=== PATIENT | male | born 1940 | race Caucasian/White ===

== ENCOUNTER 2017-07-19 08:23 | Emergency (ER) | payer MEDICARE, OTHER ==
[2017-07-19 08:23] VITALS: BMI 21.6
[2017-07-19 08:49] VITALS: TEMP 97.6
--- NOTE | 2017-07-19 09:38 | C.PDOC ---
History Of Present Illness 77 yo male w/PMHx of CVA w/Right side weakness, dysarthria 06/27/17, HTN, hematuria, " pelvic mass" s/p cystoscopy/prostate bleeding (Zach Leal), indwelling Maldonado cath, s/p transfusion PRBC 7 Units, transfer from [facility] for evaluation, possible Maldonado cath removal. Pt reports, has cath for more than week. Otehrwise, ptd eneis any new active complaints. NOted Maldonado cath with tea-color urine drainage. Time Seen by Provider: 07/19/17 08:46 Chief Complaint (Nursing): Male Genitourinary History Per: Patient, Family Past Medical History Reviewed: Historical Data, Nursing Documentation, Vital Signs Vital Signs: Last Vital Signs Temp 97.6 F 07/19/17 08:38 Pulse 88 07/19/17 10:58 Resp 17 07/19/17 10:58 BP 133/86 07/19/17 10:58 Pulse Ox 98 07/19/17 10:58 - Medical History PMH: Anemia, CVA, HTN Denies: Anxiety, HIV, Chronic Kidney Disease Family History: States: No Known Family Hx - Social History Hx Tobacco Use: No Hx Alcohol Use: Yes (no alcohol since 12 years ago.) Hx Substance Use: No - Immunization History Hx Tetanus Toxoid Vaccination: No Hx Influenza Vaccination: Yes Hx Pneumococcal Vaccination: No Review Of Systems Except As Marked, All Systems Reviewed And Found Negative. Constitutional: Negative for: Fever, Chills ENT: Negative for: Throat Pain Cardiovascular: Negative for: Chest Pain, Palpitations Respiratory: Negative for: Cough, Shortness of Breath, Wheezing Gastrointestinal: Negative for: Nausea, Vomiting, Abdominal Pain Genitourinary: Positive for: Incontinence Physical Exam - Physical Exam Appears: Well, Non-toxic, No Acute Distress Skin: Normal Color, Warm, No Rash Head: Normacephalic Eye(s): bilateral: PERRL Nose: No Flaring, No Discharge Oral Mucosa: Moist Throat: No Drooling Neck: Supple Cardiovascular: Rhythm Regular, No Murmur, No JVD Respiratory: No Decreased Breath Sounds, No Accessory Muscle Use, No Stridor, No Wheezing Gastrointestinal/Abdominal: Soft, No Tenderness, No Distention, No Guarding Male Genital: No Testicular Tenderness, No Testicular Swelling, Other ((+) Maldonado cath with tea-colored urine drainage) Extremity: No Deformity, No Swelling Neurological/Psych: Oriented x3, Dysarthria, Other (Right ueerp and lower extr weakness c/t Left side) ED Course And Treatment O2 Sat by Pulse Oximetry: 97 Pulse Ox Interpretation: Normal Progress Note: paged for consult. Zach Casey, was able to evaluate pateint in ED at 10:10, Maldonado cath was not removed today. Recommend to discharge pt with outpt f/u in 1 week, possible cath removal. On re-eval, pt remained stable, not in any apparent distress. ABd: benign. : (+) Maldonado cath intact. UA results review, (+) RBC, WBC. As per [place] transfer papers, pt is on Cipro. Ucx- pending. results review and discussed with pt. Pt understand , stable for transfer back to rehab facility now. Disposition - Disposition Referrals: Vickie Putnam MD [Staff Provider] - Disposition: TRANSF TO [facility] Disposition Time: 10:20 Condition: FAIR Additional Instructions: Follow up with as per consult. Instructions: Benign Prostatic Hyperplasia (Enlarged Prostate), Maldonado Catheter , Male, Urinary Retention (DC) Forms: [employer] (Arabic) - Clinical Impression Clinical Impression: Urinary retention, CVA (cerebral vascular accident), BPH (benign prostatic hyperplasia)
--- NOTE | 2017-07-19 10:41 | C.PDOC ---
History Of Present Illness IMP: urinary retention Hx of hematuria Elevated PSA Full note t/f Time Seen by Provider: 07/19/17 08:46 Chief Complaint (Nursing): Male Genitourinary Past Medical History Vital Signs: Last Vital Signs Temp 97.6 F 07/19/17 08:38 Pulse 77 07/19/17 08:38 Resp 16 07/19/17 08:38 BP 138/68 07/19/17 08:38 Pulse Ox 97 07/19/17 09:41 - Medical History PMH: Anemia, CVA, HTN Denies: Anxiety, HIV, Chronic Kidney Disease Family History: States: Other - Social History Hx Tobacco Use: No Hx Alcohol Use: Yes (no alcohol since 12 years ago.) Hx Substance Use: No - Immunization History Hx Tetanus Toxoid Vaccination: No Hx Influenza Vaccination: Yes Hx Pneumococcal Vaccination: No ED Course And Treatment O2 Sat by Pulse Oximetry: 97 Disposition - Disposition Disposition Time: 10:20 Condition: FAIR Forms: [employer] (Palestinian) - Clinical Impression Clinical Impression: Urinary retention
[2017-07-19 10:50] LABS: SQUAMOUS EPITHIAL < 1 /hpf (0-5); URINE BILIRUBIN NEGATIVE (NEGATIVE); URINE BLOOD 3+ (NEGATIVE); URINE CLARITY Hazy (Clear); URINE COLOR Yellow (YELLOW); URINE GLUCOSE (UA) NORMAL (Normal); URINE LEUKOCYTE ESTERASE 3+ Leu/uL (Negative); URINE PROTEIN 2+ mg/dL (NEGATIVE); URINE UROBILINOGEN NORMAL mg/dL (0.2-1.0)
[2017-07-19 10:59] VITALS: BP 133/86; PULSE 88; RESP 17
[2017-07-19 11:10] VITALS: O2SAT 97
--- NOTE | 2017-07-21 08:46 | CON ---
DATE: 07/19/2017 UROLOGY CONSULTATION Urology consultation is requested by the ER physician. Urology consultation is also requested by the rehab unit at [facility]. The patient is a 77-year-old male with urinary retention. The patient is in, otherwise, fair health. The patient had previously been in [facility]. He had urinary retention. He had hematuria. The patient required cystoscopy for relief of retention and removal of clots. The patient subsequently has failed trial of voiding. He had Maldonado catheter reinserted. The patient is currently in the rehab unit. He reports that he received physical therapy. He reports that he is ambulating. The patient reports normal appetite. He reports normal bowel movements. No recent fever or rigors. No abdominal pain. PHYSICAL EXAMINATION: GENERAL: The patient is a well-developed, well-nourished elderly male. The patient is awake and alert. ABDOMEN: Soft, nontender, nondistended. No mass or organomegaly. BACK: No CVA tenderness. GENITALIA: Without inflammation. Urine is clear via the Maldonado catheter. RECTAL: Normal sphincter tone. Prostate is enlarged and firm and symmetric. Prostate is approximately 15 gm in size, without fixation, induration or nodularity. IMPRESSION: Urinary retention. Enlarged prostate. Etiology of urinary retention may be due to prostatic enlargement, bladder outlet obstruction. Also possible is detrusor muscle hypofunction. The patient also had history of elevated serum PSA. RECOMMENDATION AND PLAN: Repeat serum PSA. Continue Flomax 0.4 mg p.o. daily, add finasteride 5 mg p.o. daily. Trial of voiding to follow. Patient may require further urologic surgery. The patient may require TURP. Repeat PSA. Possible need for prostate biopsy. Further therapy to follow according to the patient's clinical course as well as results of above. Vickie Putnam MD
== END 2017-07-19 11:09 ==
LOC: C.ER 08:23
DX: N40.1 Benign prostatic hyperplasia with lower urinary tract symptoms (principal); R33.8 Other retention of urine; I10 Essential (primary) hypertension; D64.9 Anemia, unspecified; Z86.73 Personal history of transient ischemic attack (TIA), and cerebral infarction without residual deficits; Z87.891 Personal history of nicotine dependence

== ENCOUNTER 2017-09-05 07:08 | Inpatient (IN) | payer MEDICARE ==
[2017-08-31 07:46] VITALS: BMI 17.7
[2017-09-05] MEDS ORDERED: Lidocaine 2% Jelly (Uro-Jet) ONE (10:12)
[2017-09-05] MEDS ORDERED: cefTRIAXone IV 1 gm in Dextros 50 ML IVPB ONE (10:12)
[2017-09-05 10:35] LABS: BLOOD UREA NITROGEN 12 mg/dL (9-20); CALCIUM 8.1 mg/dl (8.6-10.4); GFR AFRICAN-AMERICAN > 60; GFR NON-AFRICAN AMERICAN > 60
[2017-09-05] MEDS ORDERED: Propofol 10 mg/ml Inj (20 ML) ONE (10:45)
[2017-09-05] MEDS ORDERED: Gentamicin 160 MG in Sodium Chloride 0.9% 100 ML IVPB ONE (11:00)
[2017-09-05] MEDS ORDERED: Phenylephrine 10 mg/ml Inj ONE (11:09)
[2017-09-05] MEDS ORDERED: Oxycodone/Acetaminophen 5/325 mg Tab PO PRN (12:44)
--- NOTE | 2017-09-05 13:07 | PCM.SURG1 ---
Surgeon's Initial Post Op Note - Surgeon's Notes Surgeon: Zach Putnam [facility] Assistant: none Type of Anesthesia: General LMA Pre-Operative Diagnosis: Urinary retention, bph Operative Findings: same Post-Operative Diagnosis: same Operation Performed: TURP Specimen/Specimens Removed: urine. prostate Estimated Blood Loss: EBL {In ML}: 100 Blood Products Given: N/A Post-Op Condition: Good Date of Surgery/Procedure: 09/05/17 Time of Surgery/Procedure: 12:50
[2017-09-05] MEDS: HYDROmorphone 0.5 mg/0.5 ml ISec IVP PRN ×2 (13:17→14:46)
[2017-09-05] MEDS: Potassium Ch 20mEq in D5-1/2NS 1,000 ML IV SCH (15:00)
--- NOTE | 2017-09-05 17:48 | CP.PCM.HP ---
History of Present Illness - History of Present Illness History of Present Illness: PGY-1 H&P note for Dr Kaba service CC: s/p Transurethral Resection of Prostate Patient is a 77 yo male with Pmhx of urinary retention, BPH, HTN, Rt sided weakness s/p CVA, seen at PACU post op Transurethral medical reception specialist of the prostate, pod 0. Patient is consulted to manage his chronic conditions. Patient states feeling good overall. Patient reports some pain under his belly, 07/31. Patient says he has right arm and leg weakness, of chronic condition since june 2017. Patient is very sleepy during encounter. Patient denies fever, chills headaches , vision changes, sore throat, dizzy, Chest pain, SOB, abdominal pain, Nausea/ Vomiting, Diarrhea , Constipation or leg swelling. PMD: Dr Chen ALL: none Pmhx: Urinary retention, BPH, Hypertension, CVA Shx: denies Fmhx: denies Social hx: Patient was former smoker (quitted 1999), denies alcohol, drug use. Patient [facility] at [facility]. Meds: Norvasc 10mg Q daily, Keppra 500mg BID, Midodrine 10mg PO Q12, Fludrocortisone 0.1 mg Qdaily, Finasteride 5mg Qdaily, Ferrous sulfate 300mg Qdaily, Tamsulosin 0.4 mg Qdaily, Lipitor 60mg Hs Present on Admission - Present on Admission Any Indicators Present on Admission: No Review of Systems - Constitutional Constitutional: absent: Chills, Fatigue, Fever, Headache - EENT Eyes: absent: Change in Vision Nose/Mouth/Throat: absent: Dysphagia, Sore Throat - Cardiovascular Cardiovascular: absent: Chest Pain, Dyspnea, Lightheadedness, Palpitations - Respiratory Respiratory: absent: Cough, Dyspnea - Gastrointestinal Gastrointestinal: absent: Constipation, Diarrhea, Nausea, Vomiting - Musculoskeletal Musculoskeletal: absent: Back Pain - Integumentary Integumentary: absent: Swelling - Neurological Neurological: Weakness. absent: Dizziness, Headaches Additional comments: Right side body weakness - Endocrine Endocrine: absent: Fatigue, Palpitations Past Patient History - Infectious Disease Hx of Infectious Diseases: None - Past Medical History & Family History Past Medical History?: Yes - Past Social History Smoking Status: Former Smoker - CARDIAC Hx Cardiac Disorders: Yes Hx Hypercholesterolemia: Yes Hx Hypertension: Yes - NEUROLOGICAL Hx Neurological Disorder: Yes HX Cerebrovascular Accident: Yes - HEMATOLOGICAL/ONCOLOGICAL Hx Blood Disorders: Yes Hx Anemia: Yes Hx Blood Transfusions: Yes - MUSCULOSKELETAL/RHEUMATOLOGICAL Hx Musculoskeletal Disorders: Yes Hx Arthritis: Yes - GASTROINTESTINAL Hx Gastrointestinal Disorders: Yes (CONSTIPATION) - GENITOURINARY/GYNECOLOGICAL Hx Genitourinary Disorders: Yes (URINARY RETENTION LORD TO SGD) Hx Hematuria: Yes Hx Prostate Problems: Yes - SURGICAL HISTORY Hx Surgeries: Yes Hx Herniorrhaphy: Yes Other/Comment: I&D axillary abscess - ANESTHESIA Hx Anesthesia: Yes Hx Anesthesia Reactions: No Hx Malignant Hyperthermia: No Meds Allergies/Adverse Reactions: Allergies Allergy/AdvReac Type Severity Reaction Status Date / Time No Known Allergies Allergy Verified 07/07/17 20:09 Physical Exam - Constitutional Appears: Well, Non-toxic, No Acute Distress - Head Exam Head Exam: ATRAUMATIC, NORMAL INSPECTION, NORMOCEPHALIC - Eye Exam Eye Exam: EOMI, Normal appearance, PERRL - ENT Exam ENT Exam: Mucous Membranes Dry - Neck Exam Neck exam: Positive for: Normal Inspection - Respiratory Exam Respiratory Exam: Clear to Auscultation Bilateral, NORMAL BREATHING PATTERN. absent: Rales, Rhonchi, Wheezes, Respiratory Distress - Cardiovascular Exam Cardiovascular Exam: Tachycardia, REGULAR RHYTHM, +S1, +S2. absent: Clicks, Diastolic murmur, Gallop, Rubs - GI/Abdominal Exam GI & Abdominal Exam: Normal Bowel Sounds, Soft. absent: Distended, Firm, Guarding, Rebound, Tenderness - Extremities Exam Extremities exam: Positive for: normal inspection. Negative for: pedal edema, tenderness Additional comments: SCDs in place bilaterally - Neurological Exam Additional comments: Right Upper extremity strength 3/5 Left Upper extremity strength 5/5 Right lower extremity strength 3/5 Left lower extremity stremght 5/5 - Psychiatric Exam Psychiatric exam: Normal Affect, Normal Mood - Skin Skin Exam: Dry, Intact, Normal Color Results - Vital Signs Recent Vital Signs: Last Vital Signs Temp 97.5 F L 09/05/17 15:00 Pulse 95 H 09/05/17 17:23 Resp 20 09/05/17 17:23 BP 139/78 18 17:23 Pulse Ox 96 09/05/17 17:23 - Labs Result Diagrams: 09/05/17 10:20 Labs: Laboratory Results - last 24 hr 09/05/17 09/05/17 08:15 10:20 Sodium 138 Potassium 5.0 Chloride 107 Carbon Dioxide 26 Anion Gap 10 BUN 12 Creatinine 0.7 L Est GFR ( Amer) > 60 Est GFR (Non-Af Amer) > 60 Random Glucose 96 Calcium 8.1 L Blood Type A POSITIVE Antibody Screen Negative Assessment & Plan - Assessment and Plan (Free Text) Plan: s/p Transurethral Resection of prostate - F/U Dr Putnam recs - F/U CBC, BMP, Mg and Phosp tomorrow - F/U Urine culture - Heart healthy diet -Lord Catheter in place - check I&O - Continue Potassium Chloride IV 75mls/hr Continue home meds: Flomax 0.4mg PO Qdaily, Proscar 5mg PO Qdaily Hypertension - Continue Home meds * Norvasc 10 mg PO daily * Midodrine 10mg PO BID - Continue to Monitor vitals (BP) Right side weakness s/p CVA - Continue Lipitor 80mg PO HS - Continue Keppra 500mg PO BID - PT/OT consult Prophylaxis - DVT Prophylaxis: SCDs. Heparin is contraindicated at this time due to blood loss thru Lord catheter - GI prophylaxis: protonix 40mg PO Qdaily - Continue Home meds -Pain Management: Percocet 5/325mg Tab PO Qdaily - Heart healthy diet 2gm Plan was discussed with Dr Sesar Welch PGY-1 - Date & Time Date: 09/05/17 Time: 18:39
[2017-09-05 20:44] LABS: BLOOD UREA NITROGEN 11 mg/dL (9-20); CALCIUM 8.1 mg/dl (8.6-10.4); GFR AFRICAN-AMERICAN > 60; GFR NON-AFRICAN AMERICAN > 60
[2017-09-05 23:52] VITALS: RESP 20
[2017-09-06] MEDS: Potassium Ch 20mEq in D5-1/2NS 1,000 ML IV SCH ×4 (03:53→20:22)
--- NOTE | 2017-09-06 07:11 | CP.PCM.PN ---
Subjective - Date & Time of Evaluation Date of Evaluation: 09/06/17 Time of Evaluation: 07:11 - Subjective Subjective: PGY-[address] Kaba service Patient is seen and examined at bedside. Patient states feeling better. Patient says he is confused, as he is supposed to do therapy at his [facility] placement. Patient states he is depressed. Patient has not eaten anything due to not having his denture, which he left at [facility]. Patient denies fever, chills, chest pain, shortness of breath, dizziness, nausea, vomiting, diarrhea or constipation. Patient has weeks catheter in place. Objective - Vital Signs/Intake and Output Vital Signs (last 24 hours): Temp Pulse Resp BP Pulse Ox 98.1 F 91 H 20 130/79 99 09/05/17 23:49 09/05/17 23:49 09/05/17 23:49 09/05/17 23:49 09/05/17 23:49 Intake and Output: 09/06/17 09/06/17 06:59 18:59 Intake Total 4740 Output Total 6750 -2009 - Medications Medications: Current Medications Amlodipine Besylate (Norvasc) 10 mg PO DAILY [facility] Ferrous Sulfate (Feosol) 325 mg PO DAILY [facility] Finasteride (Proscar) 5 mg PO DAILY [facility] Fludrocortisone Acetate (Florinef) 0.1 mg PO DAILY [facility] Potassium Chloride/Dextrose/Sod Cl (Potassium Chl 20 Meq In D5-1/2ns) 1,000 mls @ 75 mls/hr IV .[id number] [facility] Last Admin: 09/06/17 03:53 Dose: 75 mls/hr Ceftriaxone Sodium 1 gm/ (Sodium Chloride) 100 mls @ 100 mls/hr IVPB DAILY [facility] PRN Reason: Protocol Levetiracetam (Keppra) 500 mg PO BID [facility] Last Admin: 09/05/17 21:20 Dose: 500 mg Midodrine (Proamatine) 10 mg PO Q12 [facility] Last Admin: 09/05/17 22:01 Dose: Not Given Multivitamins (Hexavitamin) 1 tab PO DAILY [facility] Oxycodone/Acetaminophen (Percocet 5/325 Mg Tab) 1 tab PO Q4H PRN PRN Reason: Pain, moderate (4-7) Stop: 09/08/17 12:45 Pantoprazole Sodium (Protonix Ec Tab) 40 mg PO DAILY [facility] Pneumococcal Polyvalent Vaccine (Pneumovax 23 Vaccine) 0.5 ml IM .ONCE ONE Stop: 09/06/17 10:01 Rosuvastatin Calcium (Crestor) 40 mg PO HS [facility] Last Admin: 09/05/17 21:18 Dose: 40 mg Tamsulosin HCl (Flomax) 0.4 mg PO DAILY [facility] - Labs Labs: 09/05/17 20:24 - Constitutional Appears: Non-toxic, No Acute Distress - Head Exam Head Exam: ATRAUMATIC, NORMAL INSPECTION, NORMOCEPHALIC - Eye Exam Eye Exam: EOMI, Normal appearance, PERRL - ENT Exam ENT Exam: Mucous Membranes Dry, Normal Exam - Neck Exam Neck Exam: Full ROM, Normal Inspection - Respiratory Exam Respiratory Exam: Clear to Ausculation Bilateral, NORMAL BREATHING PATTERN. absent: Rhonchi, Wheezes, Stridor - Cardiovascular Exam Cardiovascular Exam: REGULAR RHYTHM, +S1, +S2 - GI/Abdominal Exam GI & Abdominal Exam: Soft, Normal Bowel Sounds. absent: Distended, Firm, Guarding, Tenderness, Rebound - Extremities Exam Extremities Exam: Pedal Edema. absent: Tenderness Additional comments: pedal edema on right foot right LE edema, nonpitting - Neurological Exam Neurological Exam: Awake Additional comments: AAO x 1 Right upper extremity strength: 3/5 Left upper extremity strength: 5/5 Right lower extremity strength 3/5 left lower extremity strength 5/5 slurred speech - Psychiatric Exam Psychiatric exam: Normal Affect - Skin Skin Exam: Dry, Intact, Normal Color Assessment and Plan - Assessment and Plan (Free Text) Plan: s/p Transurethral Resection of prostate - F/U Urine culture -Weeks Catheter in place - continue to check I&O Continue home meds: Flomax 0.4mg PO Qdaily, Proscar 5mg PO Qdaily - F/U Dr. [place] mcdaniels Hypokalemia - asymptomatic - 09/06 Potassium --> 2.9, Magnesium --> 1.5 - Started KCL 20meq in 100ml IVPB ONCE - Started Magnesium sulfate 1gm IVPB ONCE - Start KCL 20meq PO BID - F/U BMP and Mag @ 3pm today - F/U BMP and Mag, Phosp tomorrow Hypertension - 09/06 BP: 113/87, stable - Continue Home meds * Norvasc 10 mg PO daily * Midodrine 10mg PO BID Right side weakness s/p CVA - Continue Lipitor 80mg PO HS - Continue Keppra 500mg PO BID - PT consult --> Deferred treatment due to low potassium - OT consult --> F/U Prophylaxis - DVT Prophylaxis: SCDs. Heparin is contraindicated at this time due to blood loss thru Weeks catheter - GI prophylaxis: protonix 40mg PO Qdaily - Continue Home meds - Pain Management: Percocet 5/325mg Tab PO Qdaily - changed from Heart healthy diet to soft diet Plan was discussed with Dr Sesar Welch PGY-1
[2017-09-06 07:23] LABS: HEMOGLOBIN 10.8 g/dL (12.0-18.0); MEAN CELL VOLUME 80.1 fL (80.0-94.0); MEAN CORPUSCULAR HEMOGLOBIN 26.7 pg (27.0-31.0); MEAN CORPUSCULAR HGB CONC 33.4 g/dL (33.0-37.0); MEAN PLATELET VOLUME 6.8 fL (7.2-11.7); RBC 4.04 Mil/uL (4.40-5.90); RED CELL DISTRIBUTION WIDTH 18.1 % (11.5-14.5); WHITE BLOOD COUNT 3.1 K/uL (4.8-10.8)
[2017-09-06 08:44] LABS: BLOOD UREA NITROGEN 7 mg/dL (9-20); CALCIUM 7.9 mg/dl (8.6-10.4); GFR AFRICAN-AMERICAN > 60; GFR NON-AFRICAN AMERICAN > 60; HDL CHOLESTEROL 25 mg/dL (30-70)
[2017-09-06 08:55] LABS: LDL CHOLESTEROL 35 mg/dL (0-129)
[2017-09-06] MEDS ORDERED: Magnesium Sulfate 1 gm in D5W 1 GM/100 ML BAG IVPB ONE (09:31)
[2017-09-06] MEDS: Multiple Vitamins Tab PO SCH (09:59)
[2017-09-06] MEDS: Potassium Chloride 20 mEq/15 ml LIQ UD PO SCH ×2 (09:59→17:59)
[2017-09-06] MEDS: Pantoprazole 40 mg EC Tab PO SCH (09:59)
[2017-09-06] MEDS ORDERED: Pneumococcal 23-Valent Vaccine IM ONE (10:00)
--- NOTE | 2017-09-06 10:51 | PCM.URO ---
Urology Progress Note - General General: No Complaints, Tolerating Diet - Subjective Abdominal Pain: No Flank Pain: No Nausea: No Vomiting: No Hematuria: Yes (mild) Dsypnea: No Chest Pain: No Fever & Chills: No - Objective Lab Studies: Reviewed (anemia) Lab Results Last 24 Hours: Laboratory Results - last 24 hr 09/05/17 09/06/17 09/06/17 20:24 07:10 07:10 WBC 3.1 L RBC 4.04 L Hgb 10.8 L Hct 32.4 L MCV 80.1 MCH 26.7 L MCHC 33.4 RDW 18.1 H Plt Count 209 MPV 6.8 L Sodium 141 137 Potassium 3.4 L 2.9 L Chloride 107 104 Carbon Dioxide 24 25 Anion Gap 13 10 BUN 11 7 L Creatinine 0.7 L 0.6 L Est GFR ( Amer) > 60 > 60 Est GFR (Non-Af Amer) > 60 > 60 Random Glucose 134 H 120 H Calcium 8.1 L 7.9 L Phosphorus 2.8 Magnesium 1.5 L Triglycerides 50 Cholesterol 83 LDL Cholesterol Direct 35 HDL Cholesterol 25 L Intake & Output: Intake & Output 09/05/17 09/06/17 09/06/17 18:59 06:59 18:59 Intake Total 1754 4740 Output Total 850 6750 Balance Intake: IV 1754 Intake, IV Amount 1300 Left Hand 1300 Oral 440 Other 3000 Output: Urine 850 6750 3-way Urethral 2450 Other: Voiding Method Indwelling Catheter 3-way Maldonado with CBI # Bowel Movements 1 Vital Signs: Vital Signs - 24 hr 09/05/17 09/05/17 09/05/17 12:50 13:00 13:15 Temperature 97 F L 97 F L Pulse Rate 89 98 H 98 H Respiratory 12 16 15 Rate Blood Pressure 163/89 H 160/94 H 161/80 H O2 Sat by Pulse 99 100 100 Oximetry 09/05/17 09/05/17 09/05/17 13:30 13:45 14:00 Temperature Pulse Rate 99 H 92 H 90 Respiratory 16 17 13 Rate Blood Pressure 145/87 141/76 141/75 O2 Sat by Pulse 100 100 100 Oximetry 09/05/17 09/05/17 09/05/17 14:15 14:30 14:46 Temperature Pulse Rate 92 H 90 98 H Respiratory 17 19 14 Rate Blood Pressure 139/75 137/74 145/76 O2 Sat by Pulse 100 100 100 Oximetry 09/05/17 09/05/17 09/05/17 15:00 17:00 17:23 Temperature 97.5 F L 98.1 F Pulse Rate 96 H 100 H 95 H Respiratory 15 17 20 Rate Blood Pressure 144/77 155/72 H 139/78 O2 Sat by Pulse 100 99 96 Oximetry 09/05/17 09/05/17 09/05/17 21:33 22:14 23:49 Temperature 98.1 F Pulse Rate 91 H Respiratory 18 20 Rate Blood Pressure 147/78 130/79 O2 Sat by Pulse 99 Oximetry 09/06/17 08:00 Temperature 98.7 F Pulse Rate 106 H Respiratory 20 Rate Blood Pressure 133/87 O2 Sat by Pulse 96 Oximetry - Physical Exam Abdominal Exam: Soft (Lungs- clear Heart- reg rhythm), Non-Tender, Non-Distended Back: No CVA Tenderness Genitalia: Without Inflammation Extremities: Normal: Bilateral - Male Phallus: Normal, Circumcised Testes: Normal: Bilateral - Plan Advance Diet: Yes Catheter Care: Yes Intake & Output: Yes See Orders: Yes Additional Information: Imp: progressing well, post turp - Date & Time of Note Date: 09/06/17 Time: 10:25
[2017-09-06] MEDS ORDERED: Potassium Chloride 20 mEq ER Tab PO ONE (22:33)
--- NOTE | 2017-09-07 05:30 | CP.PCM.PN ---
Subjective - Date & Time of Evaluation Date of Evaluation: 09/07/17 Time of Evaluation: 05:30 - Subjective Subjective: Pgy-[address] Kaba service Patient is seen and examined by bedside. Patient reports no acute event overnight. Patient seems upset for being in hospital and not having been able to eat food due to not having his dentures. Patient is no acute distress. Patient denies fever, chills, chest pain, shortness of breath, headaches, nausea , vomiting, diarrhea or constipation. Patient has weeks cath inserted. Objective - Vital Signs/Intake and Output Vital Signs (last 24 hours): Temp Pulse Resp BP Pulse Ox 98.4 F 60 20 115/72 96 09/06/17 23:42 09/06/17 23:42 09/06/17 23:42 09/06/17 23:42 09/06/17 23:42 Intake and Output: 09/06/17 09/07/17 18:59 06:59 Intake Total 4200 1100 Output Total 4000 830 Balance 200 270 - Medications Medications: Current Medications Amlodipine Besylate (Norvasc) 10 mg PO DAILY [facility] Last Admin: 09/06/17 09:59 Dose: 10 mg Ferrous Sulfate (Feosol) 325 mg PO DAILY [facility] Last Admin: 09/06/17 09:59 Dose: 325 mg Finasteride (Proscar) 5 mg PO DAILY [facility] Last Admin: 09/06/17 09:58 Dose: 5 mg Fludrocortisone Acetate (Florinef) 0.1 mg PO DAILY [facility] Last Admin: 09/06/17 09:59 Dose: 0.1 mg Heparin Sodium (Porcine) (Heparin) 5,000 units SC Q12H [facility] Last Admin: 09/06/17 21:22 Dose: 5,000 units Potassium Chloride/Dextrose/Sod Cl (Potassium Chl 20 Meq In D5-1/2ns) 1,000 mls @ 75 mls/hr IV .[id number] [facility] Last Admin: 09/06/17 20:22 Dose: Not Given Ceftriaxone Sodium 1 gm/ (Sodium Chloride) 100 mls @ 100 mls/hr IVPB DAILY [facility] PRN Reason: Protocol Last Admin: 09/06/17 09:58 Dose: 100 mls/hr Levetiracetam (Keppra) 500 mg PO BID [facility] Last Admin: 09/06/17 17:59 Dose: 500 mg Midodrine (Proamatine) 10 mg PO Q12 [facility] Last Admin: 09/06/17 21:23 Dose: 10 mg Multivitamins (Hexavitamin) 1 tab PO DAILY [facility] Last Admin: 09/06/17 09:59 Dose: 1 tab Oxycodone/Acetaminophen (Percocet 5/325 Mg Tab) 1 tab PO Q4H PRN PRN Reason: Pain, moderate (4-7) Stop: 09/08/17 12:45 Pantoprazole Sodium (Protonix Ec Tab) 40 mg PO DAILY [facility] Last Admin: 09/06/17 09:59 Dose: 40 mg Potassium Chloride (Potassium Chloride Oral Soln) 20 meq PO BID [facility] Stop: 09/07/17 11:00 Last Admin: 09/06/17 17:59 Dose: 20 meq Rosuvastatin Calcium (Crestor) 40 mg PO HS [facility] Last Admin: 09/06/17 21:23 Dose: 40 mg Tamsulosin HCl (Flomax) 0.4 mg PO DAILY [facility] Last Admin: 09/06/17 09:59 Dose: 0.4 mg - Labs Labs: 09/06/17 07:10 09/06/17 16:45 - Constitutional Appears: Non-toxic, No Acute Distress - Head Exam Head Exam: ATRAUMATIC, NORMAL INSPECTION, NORMOCEPHALIC - Eye Exam Eye Exam: Normal appearance - ENT Exam ENT Exam: Mucous Membranes Dry, Normal Exam - Neck Exam Neck Exam: Full ROM, Normal Inspection - Respiratory Exam Respiratory Exam: Clear to Ausculation Bilateral, NORMAL BREATHING PATTERN. absent: Rales, Rhonchi, Wheezes - Cardiovascular Exam Cardiovascular Exam: REGULAR RHYTHM, +S1, +S2. absent: Bradycardia, Tachycardia , Clicks, Gallop, Murmur - GI/Abdominal Exam GI & Abdominal Exam: Soft, Normal Bowel Sounds. absent: Distended, Guarding, Tenderness - Exam Additional comments: Weeks cath placed, pink colored urine, 450cc - Extremities Exam Extremities Exam: Full ROM, Normal Inspection Additional comments: Right foot mildly swollen, no pitting or pedal edema - Neurological Exam Neurological Exam: Alert, Awake Neuro motor strength exam: Left Upper Extremity: 5, Right Upper Extremity: 3, Left Lower Extremity: 5, Right Lower Extremity: 4 - Psychiatric Exam Psychiatric exam: Normal Mood - Skin Skin Exam: Dry, Intact, Normal Color Assessment and Plan - Assessment and Plan (Free Text) Plan: s/p Transurethral Resection of prostate - F/U Urine culture -Weeks Catheter in place - Continue Ceftriaxone IVPB on day 2 Continue home meds: Flomax 0.4mg PO Qdaily, Proscar 5mg PO Qdaily - F/U Dr. [place] mcdaniels - Patient is doing well, most likely D/C to [facility] tomorrow , possible with Weeks in place and antibiotics Hypokalemia - 09/07: K is 3.6 from yesterdays 2.9 -D/C potaasium chloride IV fluids -F/U am labs, CMP, Mg and Phosp Hypertension - 09/07 BP: 122/74, stable and asymptomatic - Continue Home meds * Norvasc 10 mg PO daily * Midodrine 10mg PO BID Right side weakness s/p CVA - Unchanged - Continue Lipitor 80mg PO HS - Continue Keppra 500mg PO BID Prophylaxis - DVT Prophylaxis: SCDs - GI prophylaxis: protonix 40mg PO Qdaily - Continue Home meds - Pain Management: Percocet 5/325mg Tab PO Qdaily - continue soft diet/pureed Plan was discussed with Dr Sesar Welch PGY-1
[2017-09-07 07:21] LABS: BASO % 0.9 % (0.0-2.0); EOS % 0.6 % (0.0-4.0); HEMOGLOBIN 9.7 g/dL (12.0-18.0); LYMPH % 28.1 % (20.0-40.0); MEAN CELL VOLUME 79.7 fL (80.0-94.0); MEAN CORPUSCULAR HEMOGLOBIN 26.7 pg (27.0-31.0); MEAN CORPUSCULAR HGB CONC 33.5 g/dL (33.0-37.0); MEAN PLATELET VOLUME 7.1 fL (7.2-11.7); MONO # 0.7 K/uL (0.0-0.8); NEUT # 1.7 K/uL (1.8-7.0); NEUT % 49.4 % (50.0-75.0); NRBC % 0.1 % (0.0-2.0); PLATELET COUNT 232 K/uL (130-400); RBC 3.65 Mil/uL (4.40-5.90); RED CELL DISTRIBUTION WIDTH 17.8 % (11.5-14.5); WHITE BLOOD COUNT 3.5 K/uL (4.8-10.8)
[2017-09-07 07:35] LABS: BLOOD UREA NITROGEN 4 mg/dL (9-20); CALCIUM 7.6 mg/dl (8.6-10.4); GFR AFRICAN-AMERICAN > 60; GFR NON-AFRICAN AMERICAN > 60
[2017-09-07 08:47] LABS: EOSINOPHIL 2 % (0-4); LYMPHOCYTE 23 % (20-40); MONOCYTE 17 % (0-10); NEUTROPHIL 58 % (50-75); TOTAL CELLS COUNTED 100
[2017-09-07 08:49] LABS: ANISOCYTOSIS SLIGHT; BURR CELLS SLIGHT; HYPOCHROMIC SLIGHT; PLATELET ESTIMATE NORMAL (NORMAL); POLYCHROMIC SLIGHT
[2017-09-07 08:50] LABS: OVALOCYTES SLIGHT; SCHISTOCYTES SLIGHT
[2017-09-07 08:51] LABS: TARGET CELLS SLIGHT
[2017-09-07] MEDS: Multiple Vitamins Tab PO SCH (09:46)
[2017-09-07] MEDS: Potassium Chloride 20 mEq/15 ml LIQ UD PO SCH (09:46)
[2017-09-07] MEDS: Pantoprazole 40 mg EC Tab PO SCH (09:46)
[2017-09-07] MEDS: Potassium Ch 20mEq in D5-1/2NS 1,000 ML IV SCH ×3 (14:57→23:41)
--- NOTE | 2017-09-07 16:17 | PCM.URO ---
Urology Progress Note - General General: No Complaints, Tolerating Diet - Subjective Abdominal Pain: No Flank Pain: No Nausea: No Hematuria: Yes (sl pink, clears with cbi) Dsypnea: No Chest Pain: No Fever & Chills: No - Objective Lab Studies: Reviewed (urine culture negative) Lab Results Last 24 Hours: Laboratory Results - last 24 hr 09/06/17 09/06/17 09/07/17 16:33 16:45 06:42 WBC RBC Hgb Hct MCV MCH MCHC RDW Plt Count MPV Neut % (Auto) Lymph % (Auto) [place] % (Auto) Eos % (Auto) Baso % (Auto) Neut # (Auto) Lymph # (Auto) [place] # (Auto) Eos # (Auto) Baso # (Auto) Neutrophils % (Manual) Lymphocytes % (Manual) Monocytes % (Manual) Eosinophils % (Manual) Platelet Estimate Polychromasia Hypochromasia (manual) Anisocytosis (manual) Target Cells Ovalocytes [place] Cells Schistocytes Sodium 133 Potassium 3.3 L 3.6 Chloride 105 Carbon Dioxide 22 Anion Gap 10 BUN 4 L Creatinine 0.6 L Est GFR ( Amer) > 60 Est GFR (Non-Af Amer) > 60 Random Glucose 91 Calcium 7.6 L Phosphorus 2.5 Magnesium 1.7 1.6 C. difficile Ag & Toxin 09/07/17 09/07/17 06:42 07:09 WBC 3.5 L RBC 3.65 L Hgb 9.7 L Hct 29.1 L MCV 79.7 L MCH 26.7 L MCHC 33.5 RDW 17.8 H Plt Count 232 MPV 7.1 L Neut % (Auto) 49.4 L Lymph % (Auto) 28.1 [place] % (Auto) 21.0 H Eos % (Auto) 0.6 Baso % (Auto) 0.9 Neut # (Auto) 1.7 L Lymph # (Auto) 1.0 [place] # (Auto) 0.7 Eos # (Auto) 0.0 Baso # (Auto) 0.0 Neutrophils % (Manual) 58 Lymphocytes % (Manual) 23 Monocytes % (Manual) 17 H Eosinophils % (Manual) 2 Platelet Estimate Normal Polychromasia Slight Hypochromasia (manual) Slight Anisocytosis (manual) Slight Target Cells Slight Ovalocytes Slight [place] Cells Slight Schistocytes Slight Sodium Potassium Chloride Carbon Dioxide Anion Gap BUN Creatinine Est GFR ( Amer) Est GFR (Non-Af Amer) Random Glucose Calcium Phosphorus Magnesium C. difficile Ag & Toxin Negative Intake & Output: Intake & Output 09/06/17 09/07/17 09/07/17 18:59 06:59 18:59 Intake Total 4200 3320 985 Output Total 4000 3930 500 Balance 200 -610 485 Intake: Intake, IV Amount 800 1200 625 Left Hand 800 1200 625 Oral 400 620 360 Other 3000 1500 Output: Urine 4000 3930 500 3-way Urethral 1630 500 Other: # Bowel Movements 2 1 4 Vital Signs: Vital Signs - 24 hr 09/06/17 09/07/17 23:42 08:00 Temperature 98.4 F 98.7 F Pulse Rate 60 90 Respiratory 20 20 Rate Blood Pressure 115/72 124/74 O2 Sat by Pulse 96 96 Oximetry - Physical Exam Abdominal Exam: Soft, Non-Tender, Non-Distended Bowel Sounds: Normal Back: No CVA Tenderness Genitalia: Without Inflammation Urine Color: [place] - Male Phallus: Normal Scrotum: Normal Testes: Normal: Bilateral - Plan Catheter Care: Yes Ambulation - Out of Bed: Yes Intake & Output: Yes See Orders: Yes Additional Information: IMP: progressing well post turp - Date & Time of Note Date: 09/07/17 Time: 16:18
[2017-09-07] MEDS ORDERED: Potassium Chloride 20 mEq ER Tab PO ONE (22:27)
[2017-09-07 23:55] VITALS: PULSE 84
[2017-09-08 07:27] LABS: BASO % 0.9 % (0.0-2.0); EOS % 0.7 % (0.0-4.0); HEMOGLOBIN 10.2 g/dL (12.0-18.0); LYMPH # 0.9 K/uL (1.0-4.3); MEAN CORPUSCULAR HEMOGLOBIN 26.7 pg (27.0-31.0); MEAN CORPUSCULAR HGB CONC 33.8 g/dL (33.0-37.0); MEAN PLATELET VOLUME 6.8 fL (7.2-11.7); MONO # 0.6 K/uL (0.0-0.8); MONO % 18.4 % (0.0-10.0); NEUT # 1.7 K/uL (1.8-7.0); NRBC % 0.1 % (0.0-2.0); RBC 3.81 Mil/uL (4.40-5.90); RED CELL DISTRIBUTION WIDTH 18.2 % (11.5-14.5); WHITE BLOOD COUNT 3.2 K/uL (4.8-10.8)
[2017-09-08 07:37] LABS: BLOOD UREA NITROGEN 5 mg/dL (9-20); GFR AFRICAN-AMERICAN > 60; GFR NON-AFRICAN AMERICAN > 60
[2017-09-08 08:39] VITALS: BP 117/75; TEMP 97.9; O2SAT 96
[2017-09-08] MEDS: Multiple Vitamins Tab PO SCH (11:11)
[2017-09-08] MEDS: Pantoprazole 40 mg EC Tab PO SCH (11:12)
[2017-09-08] MEDS: Potassium Ch 20mEq in D5-1/2NS 1,000 ML IV SCH (11:18)
--- NOTE | 2017-09-08 18:15 | CP.PCM.DIS ---
Provider - Provider Date of Admission: 09/05/17 12:59 Attending physician: Harmony Kaba MD Time Spent in preparation of Discharge (in minutes): 45 Diagnosis - Discharge Diagnosis (1) BPH (benign prostatic hyperplasia) Status: Acute (2) CVA (cerebral vascular accident) Status: Acute (3) Gait abnormality Status: Acute (4) Urinary retention Status: Acute Hospital Course - Lab Results Lab Results: Micro Results 09/05/17 12:16 Urine,Clean Catch Urine Culture - Final No Growth (<1,000 CFU/ML) Most Recent Lab Values WBC 3.2 K/uL (4.8-10.8) L 09/08/17 07:05 RBC 3.81 Mil/uL (4.40-5.90) L 09/08/17 07:05 Hgb 10.2 g/dL (12.0-18.0) L 09/08/17 07:05 Hct 30.0 % (35.0-51.0) L 09/08/17 07:05 MCV 79.0 fL (80.0-94.0) L 09/08/17 07:05 MCH 26.7 pg (27.0-31.0) L 09/08/17 07:05 MCHC 33.8 g/dL (33.0-37.0) 09/08/17 07:05 RDW 18.2 % (11.5-14.5) H 09/08/17 07:05 Plt Count 236 K/uL (130-400) 09/08/17 07:05 MPV 6.8 fL (7.2-11.7) L 09/08/17 07:05 Neut % (Auto) 52.0 % (50.0-75.0) 09/08/17 07:05 Lymph % (Auto) 28.0 % (20.0-40.0) 09/08/17 07:05 [place] % (Auto) 18.4 % (0.0-10.0) H 09/08/17 07:05 Eos % (Auto) 0.7 % (0.0-4.0) 09/08/17 07:05 Baso % (Auto) 0.9 % (0.0-2.0) 09/08/17 07:05 Neut # (Auto) 1.7 K/uL (1.8-7.0) L 09/08/17 07:05 Lymph # (Auto) 0.9 K/uL (1.0-4.3) L 09/08/17 07:05 [place] # (Auto) 0.6 K/uL (0.0-0.8) 09/08/17 07:05 Eos # (Auto) 0.0 K/uL (0.0-0.7) 09/08/17 07:05 Baso # (Auto) 0.0 K/uL (0.0-0.2) 09/08/17 07:05 Neutrophils % (Manual) 58 % (50-75) 09/07/17 06:42 Lymphocytes % (Manual) 23 % (20-40) 09/07/17 06:42 Monocytes % (Manual) 17 % (0-10) H 09/07/17 06:42 Eosinophils % (Manual) 2 % (0-4) 09/07/17 06:42 Platelet Estimate Normal (NORMAL) 09/07/17 06:42 Polychromasia Slight 09/07/17 06:42 Hypochromasia (manual) Slight 09/07/17 06:42 Anisocytosis (manual) Slight 09/07/17 06:42 Target Cells Slight 09/07/17 06:42 Ovalocytes Slight 09/07/17 06:42 [place] Cells Slight 09/07/17 06:42 Schistocytes Slight 09/07/17 06:42 Sodium 134 mmol/L (132-148) 09/08/17 07:05 Potassium 3.6 mmol/L (3.6-5.2) 09/08/17 07:05 Chloride 104 mmol/L (98-107) 09/08/17 07:05 Carbon Dioxide 25 mmol/L (22-30) 09/08/17 07:05 Anion Gap 9 (10-20) L 09/08/17 07:05 BUN 5 mg/dL (9-20) L 09/08/17 07:05 Creatinine 0.6 mg/dL (0.8-1.5) L 09/08/17 07:05 Est GFR ( Amer) > 60 09/08/17 07:05 Est GFR (Non-Af Amer) > 60 09/08/17 07:05 Random Glucose 94 mg/dL (75-110) 09/08/17 07:05 Calcium 8.0 mg/dl (8.6-10.4) L 09/08/17 07:05 Phosphorus 2.7 mg/dL (2.5-4.5) 09/08/17 07:05 Magnesium 1.6 mg/dL (1.6-2.3) 09/08/17 07:05 Triglycerides 50 mg/dL (0-149) 09/06/17 07:10 Cholesterol 83 mg/dL (0-199) 09/06/17 07:10 LDL Cholesterol Direct 35 mg/dL (0-129) 09/06/17 07:10 HDL Cholesterol 25 mg/dL (30-70) L 09/06/17 07:10 C. difficile Ag & Toxin Negative (NEGATIVE) 09/07/17 07:09 Blood Type A POSITIVE 09/05/17 08:15 Antibody Screen Negative 09/05/17 08:15 - Hospital Course Hospital Course: Patient is a 77 yo male with Pmhx of urinary retention, BPH, HTN, Rt sided weakness s/p CVA, seen at PACU post op Transurethral heel nail rasper of the prostate, pod 0. Patient is consulted to manage his chronic conditions. Patient states feeling good overall. Patient reports some pain under his belly, 07/31. Patient says he has right arm and leg weakness, of chronic condition since june 2017. Patient is very sleepy during encounter. Patient denies fever, chills headaches , vision changes, sore throat, dizzy, Chest pain, SOB, abdominal pain, Nausea/ Vomiting, Diarrhea , Constipation or leg swelling. Patient was admitted for medical management of Hypertension and post op care of TURP procedure done 09/05/2017. Urologist Dr Vickie Putnam was consulted. Patient was received with Weeks Catheter in place. Patients Weeks initally had pink colored urine with good output. On last day of hospitalization, patient urine was clear without blood, with good output. Patient was given Ceftriaxone IVPB. Patient was given fluids and was continued on his home meds: Flomax 0.4 mg Po daily, proscar 5mg PO daily. CBC, BMP, Mg and phosp were done on the patient on all the days he was admitted to the hospital. Urine culture were ordered and final results showed no growth. On 09/06 patients potassium and magnesium levels decreased. Patient was started with KCL 20meq in 100ml IVPB ONCE, Magnesium sulfate 1gm IVPB ONCE, and KCL 20meq PO BID. Potassium and Magnesium levels came back to normal limits after electrolyte replenishment therapy. Patient past medical history of Hypertension was managed by continuing home medication Norvasc 10mg PO daily, Midodrine 10mg PO BID and continous monitoring of vital signs including blood pressure and heart rate. Patient medical history of Right side weakness status post CVA was managed by continuing home meds lipitor 80mg Po Hs, and Keppra 500mg PO BID. PT and OT were consulted, which they were not able to assess the patient due to low potassium levels on day of evaluation. Patient was given the following Prophylaxis: DVT prophylaxis was managed with SCDs. Pharmacological options were contraindicated due to active hematuria s/p TURP. GI prophylaxis was done with protonix 40mg PO daily. Patient was put on a heart healthy diet, and was later switched to pureed diet due to not having dentures to be able to chew his food. On 09/08, Dr Putnam noted patient was progressing well post TURP. Patient stable to discharge as per Dr. Putnam, [place] to [facility]. Discharge with Weeks catheter. Continue weeks cath care at [facility] and follow up with urologist in one week. Patient to continue taking lipitor 80mg per mouth at bedtime, feosol liquid 300mg oral daily, feosol 325mg orally daily, finasteride (proscar)5mg per mouth daily, Fludocortisone (florinef) 0.1 mg per oral daily, Midodrine ( proamatine) 10mg oral every 12 hours, flomax 0.4mg per mouth daily, amlodipine 10mg per mouth daily, Keppra 500mg per mouth twice a day, levaquin 500mg per mouth daily. If you have any worsening of symptoms or not feeling well, please go to the Emergency room. For more details about the patient's hospitalization course, please see the patient's EMR. - Date & Time of H&P Date of H&P: 09/08/17 Time of H&P: 18:18 Discharge Exam - Head Exam Head Exam: ATRAUMATIC, NORMAL INSPECTION, NORMOCEPHALIC Discharge Plan - Discharge Medications Prescriptions: levoFLOXacin [Levaquin] 500 mg PO DAILY #5 tab - Follow Up Plan Condition: GOOD Disposition: REHAB FACILITY/REHAB UNIT Instructions: Benign Prostatic Hyperplasia (Enlarged Prostate), Urinary Tract Infection, Adult (DC), Levofloxacin (Systemic) Additional Instructions: Patient stable to discharge as per Vickie Garcia to [facility]. Discharge with Weeks catheter. Continue weeks cath care at [facility] and follow up with urologist in one week. Patient to continue taking lipitor 80mg per mouth at bedtime, feosol liquid 300mg oral daily, feosol 325mg orally daily, finasteride (proscar)5mg per mouth daily, Fludocortisone (florinef) 0.1 mg per oral daily, Midodrine ( proamatine) 10mg oral every 12 hours, flomax 0.4mg per mouth daily, amlodipine 10mg per mouth daily, Keppra 500mg per mouth twice a day, levaquin 500mg per mouth daily. If you have any worsening of symptoms or not feeling well, please go to the Emergency room. Referrals: Vickie Putnam MD [Staff Provider] -
== END 2017-09-08 16:17 | DRG 713 ==
LOC: C.SDS 07:08 → C.9S 12:59 → C.3T 17:10
PROVIDERS: ADMIT Internal Medicine; ATTEND Internal Medicine
PROC: 0VT08ZZ Resection of Prostate, Via Natural or Artificial Opening Endoscopic (ICD-10-PCS; principal; 2017-09-05 10:00)
DX: N40.1 Benign prostatic hyperplasia with lower urinary tract symptoms (principal); R33.8 Other retention of urine; I69.351 Hemiplegia and hemiparesis following cerebral infarction affecting right dominant side; I10 Essential (primary) hypertension; E78.00 Pure hypercholesterolemia, unspecified; F32.9 Major depressive disorder, single episode, unspecified; Z87.891 Personal history of nicotine dependence; Z90.79 Acquired absence of other genital organ(s)

== ENCOUNTER 2018-05-19 10:16 | Emergency (ER) | payer MEDICARE, OTHER ==
[2018-05-19 10:30] VITALS: BMI 18.4
--- NOTE | 2018-05-19 10:49 | C.PDOC ---
History Of Present Illness 78 y/o male sent in by [facility] for evaluation of catheter function. Patient was instructed to come in per his urologist Dr. Vickie Putnam. Patient has no complaints of pain. No associated abdominal pain, nausea, vomiting, diarrhea, fevers, or chills. Time Seen by Provider: 05/19/18 10:30 Chief Complaint (Nursing): Male Genitourinary History Per: Patient History/Exam Limitations: no limitations Onset/Duration Of Symptoms: Days Current Symptoms Are (Timing): Still Present Past Medical History Reviewed: Historical Data, Nursing Documentation, Vital Signs - Medical History PMH: Anemia, Arthritis, CVA, HTN, Hypercholesterolemia, Seizures Denies: HIV, Chronic Kidney Disease - [facility] Procedures APHASIA TREATMENT USING AUGMENT COMM EQUIPMENT (03/01/18) COMM/COGNIT SKILL TREATMENT USING AUGMENT COMM EQUIPMENT (07/07/17) EXERCISE TREATMENT OF MUSCULOSK WHOLE USING ASSIST EQUIPMENT (07/07/17) EXERCISE TRMT MUSCULOSK LOW BACK/LE W ASSIST EQUIP (03/01/18) GAIT TRAINING/AMBULAT TREATMENT USING ASSIST EQUIPMENT (03/01/18) HOME MANAGEMENT TREATMENT USING ASSIST EQUIPMENT (03/01/18) RESECTION OF PROSTATE, ENDO (09/05/17) Family History: States: No Known Family Hx - Social History Hx Tobacco Use: No Hx Alcohol Use: No Hx Substance Use: No - Immunization History Hx Tetanus Toxoid Vaccination: No Hx Influenza Vaccination: Yes Hx Pneumococcal Vaccination: No Review Of Systems Except As Marked, All Systems Reviewed And Found Negative. Constitutional: Negative for: Fever Respiratory: Negative for: Cough Gastrointestinal: Negative for: Vomiting, Abdominal Pain Neurological: Negative for: Weakness, Numbness Physical Exam - Physical Exam Appears: Non-toxic, No Acute Distress Skin: Warm, Dry, No Rash Head: Atraumatic, Normacephalic Eye(s): bilateral: Normal Inspection, PERRL, EOMI Oral Mucosa: Moist Neck: Normal ROM Chest: Symmetrical Cardiovascular: Rhythm Regular, No Murmur Respiratory: Normal Breath Sounds, No Accessory Muscle Use Gastrointestinal/Abdominal: Soft, No Tenderness, No Distention, Other (Maldonado catheter in place, draining yellow urine) Back: No CVA Tenderness Extremity: Bilateral: Atraumatic, Normal Color And Temperature Neurological/Psych: Oriented x3 Medical Decision Making Medical Decision Making: Spoke with Dr. Vickie Putnam, who will see patient in the ER and change catheter. 12:05 Dr. Vickie Putnam at bedside to change catheter, however patient refuses. Patient can be discharged to long-term, pending void trail in the long-term. Disposition Counseled Patient/Family Regarding: Diagnosis, Need For Followup - Disposition Referrals: Katie Walter MD [Staff Provider] - Disposition: HOME/ ROUTINE Disposition Time: 12:23 Condition: STABLE Instructions: Maldonado Catheter, Male Forms: [facility] ([place]), General Discharge Instructions - Clinical Impression Clinical Impression: Maldonado catheter in place - Scribe Statement The provider has reviewed the documentation as recorded by the Nena Kumar Provider Attestation: All medical record entries made by the Brodyibe were at my direction and personally dictated by me. I have reviewed the chart and agree that the record accurately reflects my personal performance of the history, physical exam, medical decision making, and the department course for this patient. I have also personally directed, reviewed, and agree with the discharge instructions and disposition.
[2018-05-19 11:39] VITALS: BP 122/72; PULSE 75; RESP 18; TEMP 97.6; O2SAT 99
--- NOTE | 2018-05-19 12:58 | C.PDOC ---
History Of Present Illness IMP: UTI Indwelling weeks catheter BPH full note tbd Time Seen by Provider: 05/19/18 10:30 Chief Complaint (Nursing): Male Genitourinary Past Medical History Vital Signs: Last Vital Signs Temp 97.6 F 05/19/18 11:38 Pulse 75 05/19/18 11:38 Resp 18 05/19/18 11:38 BP 122/72 05/19/18 11:38 Pulse Ox 99 05/19/18 11:38 - Medical History PMH: Anemia, Arthritis, CVA, HTN, Hypercholesterolemia, Seizures Denies: HIV, Chronic Kidney Disease - [facility] Procedures APHASIA TREATMENT USING AUGMENT COMM EQUIPMENT (03/01/18) COMM/COGNIT SKILL TREATMENT USING AUGMENT COMM EQUIPMENT (07/07/17) EXERCISE TREATMENT OF MUSCULOSK WHOLE USING ASSIST EQUIPMENT (07/07/17) EXERCISE TRMT MUSCULOSK LOW BACK/LE W ASSIST EQUIP (03/01/18) GAIT TRAINING/AMBULAT TREATMENT USING ASSIST EQUIPMENT (03/01/18) HOME MANAGEMENT TREATMENT USING ASSIST EQUIPMENT (03/01/18) RESECTION OF PROSTATE, ENDO (09/05/17) Family History: States: No Known Family Hx - Social History Hx Tobacco Use: No Hx Alcohol Use: No Hx Substance Use: No - Immunization History Hx Tetanus Toxoid Vaccination: No Hx Influenza Vaccination: Yes Hx Pneumococcal Vaccination: No ED Course And Treatment O2 Sat by Pulse Oximetry: 99 Disposition - Disposition Referrals: Katie Walter MD [Staff Provider] - Disposition: HOME/ ROUTINE Disposition Time: 12:00 Condition: STABLE Instructions: Weeks Catheter, Male Forms: General Discharge Instructions, [facility] ([place]) - Clinical Impression Clinical Impression: Weeks catheter in place
--- NOTE | 2018-05-22 08:50 | CON ---
DATE: 05/19/2018 UROLOGY CONSULTATION HISTORY OF PRESENT ILLNESS: Mr. Garret Mendez is a resident of [facility]. The patient now presents with urinary retention. The patient has a history of previous urinary retention. The patient underwent a transurethral resection of the prostate in 08/2017. The findings were BPH. The patient has a history of hypertension. The patient mostly uses a wheelchair. He reports no recent fever or rigors. No hematuria. The patient does not void. He has an indwelling Maldonado catheter. The patient had a recent urinary tract infection. MEDICATIONS: The patient's medications have included amlodipine and atorvastatin. The patient has a history of diabetes mellitus as well. There has been no flank pain. No recent fever or rigors. The patient now presents for the urologic evaluation. The patient was treated with antibiotic therapy for urinary tract infection earlier this month. The patient is uncertain why he has an indwelling catheter. The patient presented with hematuria and urinary retention in 2017. He was found to have enlarged prostate as well as clot retention. PHYSICAL EXAMINATION: GENERAL: The patient is a well-developed, well-nourished elderly male. The patient is awake and alert. ABDOMEN: Soft, nontender and nondistended. No mass or organomegaly. BACK: No CVA tenderness. GENITOURINARY: The urine is clear via the Maldonado catheter. Genitalia without inflammation. IMPRESSION: Indwelling Maldonado catheter. History of benign prostatic hypertrophy. History of urinary tract infection. History of hypertension. RECOMMENDATION AND PLAN: I have suggested to the patient that we change his Maldonado catheter. He did not want his catheter changed, rather he wanted the catheter removed. I will request further dialogue with [facility]. Trial of voiding to follow. Further urologic therapy, if any, to follow according to the patient's clinical course. Vickie Putnam MD cc: [facility], [facility]
== END 2018-05-19 13:39 | disposition home or self-care (01) ==
LOC: C.ER 10:16
DX: Z46.6 Encounter for fitting and adjustment of urinary device (principal); N40.1 Benign prostatic hyperplasia with lower urinary tract symptoms; I10 Essential (primary) hypertension